=== PATIENT | male | born 1995 | race Caucasian/White ===

== ENCOUNTER 2021-11-16 16:49 | Emergency (ER) | payer SELFPAY ==
[2021-11-16 16:55] VITALS: BP 124/86; PULSE 99; RESP 18; TEMP 36.8; O2SAT 100
--- NOTE | 2021-11-16 17:05 | ED.ALLEREA ---
HPI - Allergic Reaction General Chief complaint: Allergic Reaction Stated complaint: Allergic Reaction, Facial Swelling Time Seen by Provider: 11/16/21 16:59 History of Present Illness HPI narrative: 26-year-old male presents emergency room after being stung by some type of insect to the left ear. Happened when he was out at a park about an hour ago. He began to have swelling to his left ear and he went home and took 2 Benadryl. He had reaction to a bee sting in the past was always just localized swelling. However began to have a little swelling to the left side of his face and got concerned and came to the emergency room. Is never had anaphylactic reaction. He denies any shortness of breath. No swelling to his tongue or lips. Related Data Allergies Allergy/AdvReac Type Severity Reaction Status Date / Time No Known Allergies Allergy Verified 11/16/21 16:57 Review of Systems Review of Systems: CONSTITUTIONAL: Denies fever, chills, or sweats. EYES: Denies visual changes, redness, or discharge. ENT: Denies rhinorrhea, congestion, sore throat, or otalgia. CARDIOVASCULAR: Denies chest pain, palpitations, or edema. RESPIRATORY: Denies cough or dyspnea. GASTROINTESTINAL: Denies abdominal pain, nausea, vomiting, or diarrhea. GENITOURINARY: Denies dysuria or hematuria. SKIN: Complain of swelling to the left ear and the left side of the face MUSCULOSKELETAL: Denies back pain, joint pain, or myalgia. NEUROLOGIC: Denies headache, numbness, or weakness. PSYCHIATRIC: Denies anxiety or depression. PMFSH Past Medical History Medical History No pertinent past medical history Surgical History Surgical History No pertinent past surgical history Social History Social History Smoking status: Current some day smoker Alcohol intake: current Exam Narrative: APPEARANCE: Well appearing, no pain or distress, well-nourished. Head normocephalic and atraumatic. EYES: PERRLA/EOMI, conjunctivae very clear. NOSE: Normal with no drainage EARS:TMS clear Adolfo Manzano, with good light reflex. THROAT: Pharynx clear, no exudate. NECK: Supple. No adenopathy, no masses. RESPIRATORY: Airway patent, respirations nonlabored. Clear to auscultation bilaterally, no rales, rhonchi, wheezing. CARDIOVASCULAR: Regular rate and rhythm without murmurs, rubs, or gallops. ABDOMINAL: Soft, nontender, nondistended, no hepatosplenomegaly Musculoskeletal: Moves all extremities. Strength/ROM intact, No edema, No calf tenderness. NEURO: Alert. Cranial nerves II through XII intact. Normal gait. Good coordination. Nonfocal examination. SKIN:: Noted to have swelling to the left ear and is slightly erythematous. There is no swelling down the external auditory canal. Also noted to have some mild swelling to the left portion of the face. PSYCHIATRIC: Normal affect/mood, normal interaction Course Vital Signs Vital signs: Vital Signs Temperature 98.3 F 11/16/21 16:55 Pulse Rate 99 11/16/21 16:55 Respiratory Rate 18 11/16/21 16:55 Blood Pressure 124/86 11/16/21 16:55 Pulse Oximetry 100 11/16/21 16:55 Oxygen Delivery Room Air 11/16/21 16:55 Temperature 98.3 F 11/16/21 16:55 Pulse Rate 99 11/16/21 16:55 Respiratory Rate 18 11/16/21 16:55 Blood Pressure 124/86 11/16/21 16:55 Pulse Oximetry 100 11/16/21 16:55 Oxygen Delivery Room Air 11/16/21 16:55 MDM - Allergic Reaction MDM Narrative Medical decision making narrative: Patient not exhibiting any signs or symptoms be consistent with anaphylactic type reaction. This is all just a localized reaction. He is already taking the Benadryl advised him to take Zyrtec as it is long-acting and nonsedating. Also put him on a short course of prednisone to help with this as well. Discharge Plan Discharge Clinical Impression
[2021-11-16 17:22] VITALS: BP 120/53; PULSE 76; RESP 16; TEMP 37.4; O2SAT 99
[2021-11-16 17:43] VITALS: BP 123/70; PULSE 79; RESP 17; O2SAT 97
== END 2021-11-16 17:45 | disposition home or self-care (01) ==
LOC: ANHED 17:12
PROVIDERS: Emergency Provider Emergency Medicine
DX: T63.481A Toxic effect of venom of other arthropod, accidental (unintentional), initial encounter (principal); F17.200 Nicotine dependence, unspecified, uncomplicated
CPT/HCPCS: 99283